=== PATIENT | male | born 1955 | race Caucasian/White ===

== ENCOUNTER → 2017-09-16 | Outpatient (CLI) | payer BC ==
[~2017-09-16] MED LIST: CATHETER FLUSH 10 ML SYR IV PRN; IOHEXOL 350 MG/ML 100 ML (OMNIPAQUE 350) VIAL IV ONE; NS 250 ML (IVPB) BAG IV ONE; RECEIVED CONTRAST (Hold Metformin) IV SCH
--- NOTE | 2017-09-16 13:22 | Diagnostic Imaging Report ---
PROCEDURE: CT abdomen and pelvis with contrast. TECHNIQUE: Multiple contiguous axial images were obtained through the abdomen and pelvis after administration of intravenous contrast. INDICATION: Abdominal pain. COMPARISON: I have no previous. FINDINGS: There is a suspected primary neoplasm in the left upper quadrant involving the tail of the pancreas as well as posterior wall of the proximal body of the stomach. This is likely a pancreatic malignancy with infiltration of the adjacent gastric wall; this could also be a primary gastric malignancy with an exogastric component invading the pancreas. There are low density but solid masses in the liver presumptively reflective of metastatic disease. A lesion in the right hepatic lobe at the dome measured 2.4 cm. A lesion in the posterior aspect of the right hepatic lobe inferiorly measures 3.9 cm. Additional smaller hepatic masses are present. There are multiple peritoneal and mesenteric masses, presumed metastatic, including a large lesion just deep to the left upper quadrant's abdominal wall measuring 6.1 x 4.6 cm. This mass would be a good candidate for percutaneous sampling if needle biopsy is desired. Upper GI endoscopy may also be of diagnostic utility. There is some early nodular soft tissue induration of the omentum, likely early omental caking. There is only a small amount of pelvic ascites, however. The unobstructed kidneys were unremarkable. There is splenic heterogeneity which may reflect areas of ischemia versus neoplastic involvement. Soft tissue mass encapsulates the splenic hilar vascularity adjacent to the pancreatic tail with this tissue measuring 2.1 cm. The left adrenal gland is heterogeneous and thickened suspicious for its neoplastic infiltration. There is no bowel obstruction. The urinary bladder and prostate appeared unremarkable. The unobstructed kidneys are normal. There is no suspicious osseous lesion. The lung bases are nonacute. IMPRESSION: 1. A malignant appearance of the abdomen. Suspected primary mass in the left upper quadrant is felt likely pancreatic in origin with infiltration of the adjacent posterior gastric wall. Primary gastric malignancy with exogastric extension. An infiltrate of the pancreas is less likely but an additional consideration. There are findings of multifocal hepatic metastases, mesenteric and omental metastases, and suspected splenic infiltration and left adrenal metastasis. A presumed metastatic lesion in the left upper quadrant could be sampled percutaneously. Endoscopic upper GI may also prove to be of diagnostic utility. The caudal right hepatic lobe mass would also be an additional good source for percutaneous biopsy. 2. Small pelvic free fluid suspicious for malignant ascites given the omental and peritoneal metastases. 3. No bowel, biliary, or urinary tract obstruction. Suspicion for a pattern of metastatic disease was left on the ordering physician's phone mail recorder. The dragline operator helper does not have the pager number, and the office does not accept messages. Dictated by: Dictated on workstation # [id number]
== END ==
LOC: RAD 12:02
PROVIDERS: ATTEND Internal Medicine
DX: C16.9 Malignant neoplasm of stomach, unspecified (principal); C78.7 Secondary malignant neoplasm of liver and intrahepatic bile duct; C78.6 Secondary malignant neoplasm of retroperitoneum and peritoneum; R18.8 Other ascites
CPT/HCPCS: 74177

== ENCOUNTER 2017-09-21 07:01 | Day surgery (SDC) | payer BC ==
[2017-09-21] VITALS (17 sets, daily range): BP systolic 83–117; BP diastolic 53–83
[~2017-09-21] VITALS: Ht 172.7 cm; Wt 76.2 kg
[2017-09-21 07:44] LABS: HEMOGLOBIN 12.6 G/DL (13.3-17.7); MEAN PLATELET VOLUME 9.6 FL (7.4-10.4); RED BLOOD COUNT 3.98 10^6/uL (4.35-5.85); RED CELL DISTRIBUTION WIDTH 12.7 % (10.0-14.5); WHITE BLOOD COUNT 10.1 10^3/uL (4.3-11.0)
[2017-09-21 07:53] LABS: PROTHROMBIN TIME PATIENT 13.6 SEC (12.2-14.7)
[2017-09-21] MEDS ORDERED: NS IV 1000 ML 1,000 ML IV STA (08:02)
[2017-09-21] MEDS ORDERED: LIDOCAINE 1% INJ 50 ML (XYLOCAINE) VIAL ONE (08:14)
[2017-09-21] MEDS ORDERED: MIDAZOLAM 2 MG/2 ML (VERSED) VIAL IVP PRN (08:15)
[2017-09-21] MEDS ORDERED: fentaNYL INJECTION 100 MCG/2 ML AMP IVP PRN (08:15)
[2017-09-21] MEDS ORDERED: LIDOCAINE 1% INJ 20 ML (XYLOCAINE) VIAL INJ ONE (08:15)
[2017-09-21] MEDS ORDERED: HYDROcodone/APAP 5 MG/325 MG (LORTAB) TAB PO ONE (08:15)
[2017-09-21] MEDS ORDERED: ACHD5005 PO (09:10)
[2017-09-21] MEDS ORDERED: LISI1TAB8 PO (09:10)
[2017-09-21] MEDS ORDERED: METO100T6 PO (09:10)
[2017-09-21] MEDS ORDERED: PANT40TA2 PO (09:10)
[2017-09-21] MEDS ORDERED: HYDROcodone/APAP 5 MG/325 MG (LORTAB) TAB PO PRN (09:30)
--- NOTE | 2017-09-21 09:38 | Pre-Op Note & Conscious Sedat ---
Pre-Operative Progress Note H&P Reviewed The H&P was reviewed, patient examined and no changes noted. Date H&P Reviewed: Sep 21, 2017 Time H&P Reviewed: 08:30 Pre-Op Diagnosis: Liver Mass Conscious Sedation Pre-Proced Time Reviewed: 08:30 ASA Class: 2 Airway Mallampati Classification: ([place] appropriate class) I. II. III, IV Lungs Heart ASA score ASA 1: a normal healthy patient ASA 2: a patient with a mild systemic disease (mid diabetes, controlled hypertension, obesity ASA 3: a patient with a severe systemic disease that limits activity (angina , COPD, prior Myocardial infarction) ASA 4: a patient with an incapacitating disease that is a constant threat to life (CHF, renal failure) ASA 5: a moribund patient not expected to survive 24 hrs. (ruptured aneurysm) ASA 6: a declared brain patient whose organs are being harvested. For emergent operations, add the letter E after the classification Grade 1 Sedation Plan: Analgesia, Amnesia Note The patient is an appropriate candidate to undergo the planned procedure, sedation, and anesthesia. The patient immediately re-assessed prior to indication. JULIA BAEZ MD Sep 21, 2017 09:38
--- NOTE | 2017-09-21 10:13 | Diagnostic Imaging Report ---
INDICATION: Liver mass. Patient presents for CT-guided core biopsy. PROCEDURE: After informed written consent was obtained from the patient, the patient brought to the CT suite and placed on the table in the supine position. Axial imaging through the abdomen was performed to evaluate appropriate entry site. The right abdomen was then prepped and draped in the usual sterile fashion. A small amount of 1% lidocaine was utilized for local anesthesia. The study was performed utilizing conscious sedation. Total sedation time was 7 minutes. Patient was administered 1 mg of Versed IV. An 18-gauge coaxial Temno needle was advanced, placed with its tip within the low-density mass in the inferior right lobe of the liver. A total of four core biopsies were obtained. The needle was withdrawn and hemostasis was obtained. Patient tolerated the procedure well and left the department in stable condition. IMPRESSION: Successful CT-guided core biopsy of the dominant low-density mass in the inferior right lobe of the liver, utilizing conscious sedation. Dictated by: Dictated on workstation # [id number]
== END 2017-09-21 13:30 | disposition home or self-care (01) ==
LOC: RAD 07:01 → SURG 09:25 → RAD 13:30
PROVIDERS: ATTEND Internal Medicine
DX: C80.1 Malignant (primary) neoplasm, unspecified (principal); R16.0 Hepatomegaly, not elsewhere classified
CPT/HCPCS: 36415; 77012; 85027; 85610; 85730; 99156

== ENCOUNTER 2017-09-29 13:26 | Outpatient (RCR) | payer BC ==
[~2017-09-29 13:26] MED LIST changes: +ACHD5005 PO; -CATHETER FLUSH 10 ML SYR IV PRN; -IOHEXOL 350 MG/ML 100 ML (OMNIPAQUE 350) VIAL IV ONE; +LISI1TAB8 PO; +METO100T6 PO; -NS 250 ML (IVPB) BAG IV ONE; +PANT40TA2 PO; -RECEIVED CONTRAST (Hold Metformin) IV SCH
== END 2017-11-12 | disposition home or self-care (01) ==
LOC: ONC 13:26
PROVIDERS: ATTEND Internal Medicine Hematology & Oncology
DX: C25.2 Malignant neoplasm of tail of pancreas (principal); C78.89 Secondary malignant neoplasm of other digestive organs; G89.3 Neoplasm related pain (acute) (chronic); Z79.899 Other long term (current) drug therapy
CPT/HCPCS: 99214